=== PATIENT | female | born 1945 | race Caucasian/White ===

== ENCOUNTER 2017-01-18 11:33 | Outpatient (CLI) | payer MEDICARE, OTHER ==
[2017-01-18 12:30] LABS: ALT (SGPT) 9 U/L (0-55); AST (SGOT) 13 U/L (5-34); Albumin 4.2 g/dL (3.4-4.8); Alkaline Phosphatase 87 U/L (40-150); Anion Gap 14 mmol/L (10-20); BUN (Urea Nitrogen) 7 mg/dL (9.8-20.1); Bilirubin, Direct 0.1 mg/dL (0.1-0.3); Bilirubin, Total 0.4 mg/dL (0.2-1.2); Calc. Creatinine Clearance 0 mL/min (70-130); Calcium 9.4 mg/dL (7.8-10.44); Carbon Dioxide 27 mmol/L (23-31); Chloride 99 mmol/L (98-107); Cholesterol 221 mg/dL (< 200 Desired); Estimated GFR-MDRD 79; Globulin 2.6 g/dL (2.4-3.5); Glucose 94 mg/dL (80-115); HDL Cholesterol 44 mg/dL (>60 Neg Risk); LDL Cholesterol, Calculated 148 mg/dL; Potassium 3.8 mmol/L (3.5-5.1); Protein, Total 6.8 g/dL (5.8-8.1); Sodium 136 mmol/L (136-145); Triglycerides 145 mg/dL (Less than 150)
[2017-01-18 12:38] LABS: Band 4 % (5-11); Hemoglobin 13.4 g/dL (12.0-16.0); Lymphocytes 24 % (21-51); MDiff Complete? YES; Mean Corpuscular HGB CONC 34.7 g/dL (32.0-36.0); Mean Corpuscular Hemoglobin 30.5 pg (27.0-31.0); Monocytes 14 % (0-10); Neutrophil 58 % (42-75); PLT Morphology Comment Appears Adequate; Platelet Count 295 thou/uL (130-400); RBC Distribution Width 12.2 % (11.5-14.5); Red Blood Cell (RBC) Count 4.39 mill/uL (4.20-5.40); White Blood Cell (WBC) Count 5.8 thou/uL (4.8-10.8)
== END 2017-01-18 11:34 | disposition home or self-care (01) ==
LOC: MADLABBHPM 11:33
PROVIDERS: ATTEND Family Medicine
DX: R10.13 Epigastric pain (principal)
CPT/HCPCS: 36415; 80053; 80061; 82248; 84443; 85025

== ENCOUNTER 2017-01-19 11:24 | Emergency (ER) | payer MEDICARE, OTHER ==
[~2017-01-19 11:24] MED LIST: Iopamidol 370 76% 125 ML VIAL FS ONE; Sodium Chloride 0.9% 100 ML BAG ONE
[2017-01-19 12:33] LABS: #Basophils 0.1 thou/uL (0.0-0.2); #Lymphocytes 1.2 thou/uL (1.20-3.40); #Monocytes 1.2 thou/uL (0.11-0.59); #Neutrophils 5.9 thou/uL (1.40-6.50); %Basophils 0.9 % (0.0-1.0); %Eosinophils 0.4 % (0.0-10.0); %Lymphocytes 14.7 % (21.0-51.0); %Monocytes 14.6 % (0.0-10.0); %Neutrophils 69.5 % (42.0-75.0); Hemoglobin 12.7 g/dL (12.0-16.0); Mean Corpuscular HGB CONC 33.6 g/dL (32.0-36.0); Mean Corpuscular Hemoglobin 29.3 pg (27.0-31.0); Mean Corpuscular Volume 87.3 fl (81.0-99.0); Mean Platelet Volume 8.3 fL (7.4-10.4); Platelet Count 291 thou/uL (130-400); RBC Distribution Width 12.1 % (11.5-14.5); Red Blood Cell (RBC) Count 4.32 mill/uL (4.20-5.40); White Blood Cell (WBC) Count 8.5 thou/uL (4.8-10.8)
--- NOTE | 2017-01-19 12:49 | RAD ---
PORTABLE CHEST ONE VIEW 01/19/2017 12:06 P.M. HISTORY: Chest pain. COMPARISON: 08/20/2015 FINDINGS: The heart size is stable. No focal areas of consolidation, pneumothorax, chiquis pulmonary edema, or pleural effusions are seen. IMPRESSION: No acute process. POS: TIANNAH
[2017-01-19 12:56] LABS: ALT (SGPT) 8 U/L (0-55); AST (SGOT) 14 U/L (5-34); Albumin 4.2 g/dL (3.4-4.8); Alkaline Phosphatase 87 U/L (40-150); Anion Gap 14 mmol/L (10-20); BUN (Urea Nitrogen) 11 mg/dL (9.8-20.1); Bilirubin, Total 0.4 mg/dL (0.2-1.2); Calc. Creatinine Clearance 0 mL/min (70-130); Calcium 9.3 mg/dL (7.8-10.44); Carbon Dioxide 23 mmol/L (23-31); Chloride 101 mmol/L (98-107); Estimated GFR-MDRD 75; Globulin 2.6 g/dL (2.4-3.5); Glucose 103 mg/dL (80-115); Lipase 14 U/L (8-78); Potassium 3.9 mmol/L (3.5-5.1); Protein, Total 6.8 g/dL (5.8-8.1); Sodium 134 mmol/L (136-145)
[2017-01-19 12:57] LABS: CKMB 0.4 ng/mL (0-6.6); Troponin I Less than 0.010 ng/mL (< 0.028)
--- NOTE | 2017-01-19 15:02 | CT ---
CTA OF THE THORAX UTILIZING IV CONTRAST PE PROTOCOL AND 3D REFORMATTED IMAGING: Date: 01/19/17 INDICATION: Chest pain with elevated D-Dimer. COMPARISON: CTA of the thorax dated 06/11/15. FINDINGS: No definite central pulmonary embolus is evident. Respiratory motion artifact limits visualization o f the segmental branches of the lungs. There has been interval development of a 5.0 x 3.2 cm left infrahilar mass. There is enlargement of the left hilar lymph nodes. One of the largest measures 1.5 cm, image 51 of series 2. There is enlar gement of a tracheobronchial lymph node on image 54 of series 2 measuring 9.8 cm. There are a few mi ldly prominent anterior mediastinal lymph nodes, one of the largest is seen along the left internal thoracic chain measuring 7.0 mm. There are enlarged axillary lymph nodes bilaterally. One of the lar gest is seen within the right axillary region measuring 1.4 cm. There are enlarged lymph nodes within the gastrohepatic and periportal regions. One of the larger ly mph nodes is seen measuring 1.2 cm. This is more enlarged than seen on the comparison exam in 2015. Arterial enhancing lesion within the lateral left hepatic lobe is stable measuring 1.0 cm and likely reflecting a small flash-filling hemangioma. There is diffuse fatty infiltration of the liver. Visu alized adrenal glands are normal appearing. There is scattered degenerative and osteoarthritic oneill e. There is prominent bony hemangioma within T12, L1, T8, and T3. No suspicious osteolytic or osteob lastic lesion is demonstrated. IMPRESSION: 1. Interval development of a large left infrahilar mass suspicious for malignancy. This mass lesion would be amenable for CT guided percutaneous sampling. 2. Enlarged lymph nodes within left infrahilar region and left tracheobronchial region suspicious f or malignant lymphadenopathy. 3. Mildly prominent lymph nodes within the anterior mediastinum, both axillary regions of upper abd omen are much more prominent than seen on the comparison examination. 4. Flash-filling hemangioma within the left hepatic lobe appears stable to the comparison in 2015. 5. No definite central pulmonary embolus is evident. Respiratory motion artifact limits detail of t he segmental branches of the pulmonary arterial tree. 6. Fatty liver. POS: CET
== END 2017-01-19 15:26 | disposition home or self-care (01) ==
LOC: MADERS 11:24
DX: R07.9 Chest pain, unspecified (principal); E78.5 Hyperlipidemia, unspecified; E78.00 Pure hypercholesterolemia, unspecified; I10 Essential (primary) hypertension; F17.210 Nicotine dependence, cigarettes, uncomplicated; Z79.82 Long term (current) use of aspirin; Z79.899 Other long term (current) drug therapy
CPT/HCPCS: 36415; 71010; 71275; 80053; 82553; 83690; 84484; 85025; 85379; 93005; J7050

== ENCOUNTER 2017-05-19 10:07 | Outpatient (CLI) | payer MEDICARE, OTHER ==
[2017-05-19 11:06] LABS: Hemoglobin A1c 5.3 % (4.0-6.0)
[2017-05-19 11:34] LABS: ALT (SGPT) 6 U/L (8-55); AST (SGOT) 14 U/L (5-34); Albumin 3.9 g/dL (3.4-4.8); Alkaline Phosphatase 92 U/L (40-150); Anion Gap 16 mmol/L (10-20); BUN (Urea Nitrogen) 14 mg/dL (9.8-20.1); Bilirubin, Direct 0.2 mg/dL (0.1-0.3); Bilirubin, Total 0.5 mg/dL (0.2-1.2); Calc. Creatinine Clearance 0 mL/min (70-130); Calcium 9.1 mg/dL (7.8-10.44); Carbon Dioxide 23 mmol/L (23-31); Cardiac Risk 4.6 (Less than 4.5); Chloride 104 mmol/L (98-107); Cholesterol 196 mg/dl (< 200 Desired); Estimated GFR-MDRD 72; Glucose 97 mg/dL (83-110); HDL Cholesterol 43 mg/dL (>60 Neg Risk); LDL Cholesterol, Calculated 119 mg/dL; Potassium 3.8 mmol/L (3.5-5.1); Protein, Total 6.5 g/dL (6.0-8.3); Sodium 139 mmol/L (136-145); Triglycerides 169 mg/dL (Less than 150)
--- NOTE | 2017-05-19 12:57 | RAD ---
THREE VIEWS RIGHT SHOULDER: History: Right shoulder pain. FINDINGS: Three views of the right shoulder shows no evidence of acute fracture or dislocation. Mild degenerat yemi changes are seen. IMPRESSION: Unremarkable exam. POS: IRIS
[2017-05-19 14:38] LABS: Band 1 % (5-11); Hemoglobin 12.2 g/dL (12.0-16.0); Lymphocytes 22 % (21-51); MDiff Complete? YES; Mean Corpuscular HGB CONC 32.6 g/dL (32.0-36.0); Mean Corpuscular Hemoglobin 28.2 pg (27.0-31.0); Mean Corpuscular Volume 86.4 fl (81.0-99.0); Mean Platelet Volume 8.5 fL (7.4-10.4); Monocytes 13 % (0-10); Neutrophil 64 % (42-75); PLT Morphology Comment Appears Adequate; Platelet Count 258 thou/uL (130-400); RBC Distribution Width 13.3 % (11.5-14.5); Red Blood Cell (RBC) Count 4.31 mill/uL (4.20-5.40); White Blood Cell (WBC) Count 7.7 thou/uL (4.8-10.8)
== END 2017-05-19 10:08 | disposition home or self-care (01) ==
LOC: MADLABBHPM 10:07
PROVIDERS: ATTEND Family Medicine
DX: C80.1 Malignant (primary) neoplasm, unspecified (principal); I10 Essential (primary) hypertension; R73.01 Impaired fasting glucose; M25.511 Pain in right shoulder
CPT/HCPCS: 36415; 80048; 80061; 80076; 83036; 85025

== ENCOUNTER 2017-08-02 15:44 | Outpatient (CLI) | payer MEDICARE, BC, OTHER ==
[2017-08-02 17:10] LABS: ALT (SGPT) 28 U/L (8-55); AST (SGOT) 14 U/L (5-34); Albumin 3.4 g/dL (3.4-4.8); Alkaline Phosphatase 82 U/L (40-150); Anion Gap 16 mmol/L (10-20); BUN (Urea Nitrogen) 19 mg/dL (9.8-20.1); Bilirubin, Total 0.6 mg/dL (0.2-1.2); Calc. Creatinine Clearance 0 mL/min (70-130); Calcium 8.2 mg/dL (7.8-10.44); Carbon Dioxide 24 mmol/L (23-31); Chloride 103 mmol/L (98-107); Estimated GFR-MDRD 90; Globulin 2.2 g/dL (2.4-3.5); Glucose 93 mg/dL (83-110); Potassium 3.4 mmol/L (3.5-5.1); Protein, Total 5.6 g/dL (6.0-8.3); Sodium 140 mmol/L (136-145)
== END 2017-08-02 15:45 | disposition home or self-care (01) ==
LOC: MADLABBHPM 15:44
PROVIDERS: ATTEND Family Medicine
DX: R60.9 Edema, unspecified (principal); I10 Essential (primary) hypertension
CPT/HCPCS: 80053; 84443; 85025

== ENCOUNTER 2017-08-13 09:41 | Outpatient (CLI) | payer MEDICARE, BC ==
[2017-08-13 10:06] LABS: #Basophils 0.1 thou/uL (0.0-0.2); #Eosinphils 0.1 thou/uL (0.0-0.7); #Lymphocytes 1.7 thou/uL (1.20-3.40); #Monocytes 0.7 thou/uL (0.11-0.59); %Basophils 1.1 % (0.0-1.0); %Eosinophils 1.3 % (0.0-10.0); %Lymphocytes 37.5 % (21.0-51.0); %Monocytes 14.9 % (0.0-10.0); %Neutrophils 45.2 % (42.0-75.0); Hemoglobin 10.7 g/dL (12.0-16.0); Mean Corpuscular HGB CONC 32.2 g/dL (32.0-36.0); Mean Corpuscular Hemoglobin 28.7 pg (27.0-31.0); Mean Corpuscular Volume 89.3 fl (81.0-99.0); Mean Platelet Volume 5.9 fL (7.4-10.4); Platelet Count 297 thou/uL (130-400); RBC Distribution Width 16.3 % (11.5-14.5); Red Blood Cell (RBC) Count 3.72 mill/uL (4.20-5.40); White Blood Cell (WBC) Count 4.5 thou/uL (4.8-10.8)
[2017-08-13 10:28] LABS: Anion Gap 11 mmol/L (10-20); BUN (Urea Nitrogen) 11 mg/dL (9.8-20.1); Calc. Creatinine Clearance 0 mL/min (70-130); Carbon Dioxide 29 mmol/L (23-31); Chloride 102 mmol/L (98-107); Estimated GFR-MDRD 85; Glucose 96 mg/dL (83-110); Potassium 4.6 mmol/L (3.5-5.1); Sodium 137 mmol/L (136-145)
== END 2017-08-13 09:42 | disposition home or self-care (01) ==
LOC: MADLABBHPM 09:41
PROVIDERS: ATTEND Family Medicine
DX: E87.6 Hypokalemia (principal)
CPT/HCPCS: 36415; 80048; 85025